=== PATIENT | female | born 1975 | race Caucasian/White ===

== ENCOUNTER 2023-05-03 23:07 | Inpatient (IN) | payer BC, MEDICAID ==
[~2023-05-03] VITALS: Ht 165.1 cm; Wt 61.8 kg
[2023-05-03] MEDS ORDERED: VENL50TA44 PO (23:48)
[2023-05-03] MEDS ORDERED: MIRT-149 PO (23:48)
[2023-05-04 00:30] LABS: BASOPHILS % (AUTO) 1.1 % (0.0-2.0); EOSINOPHILS % (AUTO) 1.1 % (1.0-6.0); HEMOGLOBIN 13.9 g/dL (12.0-16.0); LYMPHOCYTES # (AUTO) 1.4 K/uL (1.0-4.8); LYMPHOCYTES % (AUTO) 28.2 % (22.0-44.0); MEAN CORPUSCULAR HEMOGLOBIN 29.2 pg (26.0-34.0); MEAN CORPUSCULAR HGB CONC 33.1 G/dL (31.0-37.0); MEAN CORPUSCULAR VOLUME 88 fL (80-100); MONOCYTES # (AUTO) 0.4 K/uL (0.1-1.0); MONOCYTES % (AUTO) 7.9 % (2.0-9.0); NEUTROPHILS % (AUTO) 61.7 % (40.0-70.0); PLATELET COUNT (AUTO) 176 K/uL (150-450); RED BLOOD CELL COUNT(AUTO) 4.75 MIL/uL (4.00-5.20); RED CELL DISTRIBUTION WIDTH 13.5 % (11.5-14.5)
[2023-05-04 00:37] LABS: ANION GAP 8 mmol/L (8-16); CALCIUM, TOTAL 8.6 mg/dL (8.8-10.5); CARBON DIOXIDE 27 mmol/L (22-29); CHLORIDE 106 mmol/L (98-107); CREATININE 0.83 mg/dL (0.60-1.30); GLOMERULAR FILTR. RATE CALC > 60 mL/min (>60); GLUCOSE,RANDOM 103 mg/dL (70-110); POTASSIUM 3.7 mmol/L (3.5-5.1); SODIUM SERUM 141 mmol/L (136-145)
[2023-05-04 00:43] LABS: ALANINE AMINOTRANSFERASE 9 U/L (12-78); ALBUMIN 3.2 g/dL (3.4-5.0); ALKALINE PHOSPHATASE 94 U/L (46-116); ASPARTATE AMINOTRANSFERASE 10 U/L (15-37); BILIRUBIN,TOTAL 0.2 mg/dL (0.1-1.0)
[2023-05-04 03:14] LABS: COVID AG,FIA SOURCE NASOPHARYNGEAL
[2023-05-04 12:51] LABS: APPEARANCE,URINE CLEAR (CLEAR); BILIRUBIN,URINE NEGATIVE (NEGATIVE); GLUCOSE, URINE (UA) NEGATIVE (NEGATIVE); KETONES,URINE NEGATIVE (NEGATIVE); LEUKOCYTE ESTERASE ,URINE NEGATIVE (NEGATIVE); NITRATE,URINE NEGATIVE (NEGATIVE); OCCULT BLOOD,URINE NEGATIVE (NEGATIVE); PROTEIN,URINE 30-70 mg/dL (NEGATIVE); SPECIFIC GRAVITIY, URINE 1.025 (1.003-1.030); UROBILINOGEN,URINE <=1.0 mg/dL (<=1.0)
[2023-05-04 12:57] LABS: AMPHET/METH SCREEN,URINE NEGATIVE (NEGATIVE); BARBITURATE SCREEN, URINE NEGATIVE (NEGATIVE); BENZODIAZEPINES SCREEN,URINE NEGATIVE (NEGATIVE); CANNABINOID SCREEN,URINE NEGATIVE (NEGATIVE); COCAINE SCREEN,URINE NEGATIVE (NEGATIVE); METHADONE SCREEN, URINE NEGATIVE (NEGATIVE); OPIATE SCREEN,URINE NEGATIVE (NEGATIVE); PHENCYCLIDINE SCREEN,URINE NEGATIVE (NEGATIVE)
[2023-05-04] MEDS ORDERED: DIVA500T53 PO (13:31)
[2023-05-04] MEDS ORDERED: LINA72CA PO (13:31)
[2023-05-04] MEDS: VENLAFAXINE HCL 150 MG ER CAPSULE PO SCH (14:10)
[2023-05-04] MEDS: DIVALPROEX SODIUM 500 MG ER TABLET PO SCH ×2 (14:11→21:40)
[2023-05-04] MEDS: LINACLOTIDE 72 MCG CAPSULE PO SCH (14:12)
[2023-05-04 18:03] VITALS: BP 145/80; PULSE 82; RESP 18; TEMP 98.4
[2023-05-04 18:11] VITALS: BP 145/80; PULSE 82; RESP 18; TEMP 98.4
[2023-05-04] MEDS: ZOLPIDEM TARTRATE 10 MG TABLET PO PRN (21:41)
[2023-05-04 23:30] VITALS: BP 124/83; PULSE 78; RESP 18; TEMP 98.1
[2023-05-05] MEDS ORDERED: DOCUSATE SODIUM 100 MG CAPSULE PO PRN (07:45)
[2023-05-05] MEDS ORDERED: ACETAMINOPHEN 325 MG TABLET PO PRN (07:45)
[2023-05-05] MEDS ORDERED: ALBUTEROL SULFATE HFA 90 MCG/PUFF 8 GM INHALER IH PRN (07:45)
[2023-05-05] MEDS ORDERED: MAGNESIUM HYDROXIDE SUSPENSION 30 ML UDCUP PO PRN (07:45)
[2023-05-05] MEDS ORDERED: LOPERAMIDE HCL 2 MG CAPSULE PO PRN (07:45)
[2023-05-05] MEDS ORDERED: NICOTINE 14 MG/24 HOUR PATCH TD PRN (07:45)
[2023-05-05] MEDS ORDERED: CloNIDine HCL 0.1 MG TABLET PO PRN (07:45)
[2023-05-05] MEDS ORDERED: MAG HYDROX/AL HYDROX/SIMETH ES 30 ML SUSPENSION UDCUP PO PRN (07:45)
[2023-05-05] MEDS ORDERED: GuaiFENesin/D-METHORPHAN [SUGAR-FREE] 200-20MG/10 ML SYRUP UDCUP PO PRN (07:45)
[2023-05-05] MEDS ORDERED: PETROLATUM,WHITE 28 GM JELLY TP PRN (07:45)
[2023-05-05 08:52] VITALS: BP 126/88; PULSE 84; RESP 16; TEMP 98
[2023-05-05 09:49] VITALS: BP 126/88; PULSE 84; RESP 16; TEMP 98
[2023-05-05] MEDS: IBUPROFEN 400 MG TABLET PO PRN (09:49)
[2023-05-05] MEDS: LINACLOTIDE 72 MCG CAPSULE PO SCH (09:49)
[2023-05-05] MEDS: VENLAFAXINE HCL 150 MG ER CAPSULE PO SCH (09:49)
[2023-05-05] MEDS: DIVALPROEX SODIUM 500 MG ER TABLET PO SCH ×2 (09:49→20:39)
[2023-05-05 10:49] VITALS: BP 132/81; PULSE 81; RESP 16; TEMP 98.1
[2023-05-05] MEDS: ONDANSETRON HCL 4 MG TABLET PO PRN (19:19)
[2023-05-05] MEDS: MIRTAZAPINE 30 MG TABLET PO SCH (20:39)
[2023-05-05 21:13] VITALS: BP 119/76; PULSE 75; RESP 18; TEMP 98.7
[2023-05-05] MEDS: ZOLPIDEM TARTRATE 10 MG TABLET PO PRN (22:03)
[2023-05-06 08:58] VITALS: RESP 18
[2023-05-06 09:27] LABS: HEMOGLOBIN A1C 5.3 % (3.8-5.6)
[2023-05-06 09:35] LABS: CHOL/HDL RATIO 3.4 (3.9-5.7); THYROID STIMULATING HORMONE 4.66 uIU/mL (0.36-3.74)
[2023-05-06] MEDS: VENLAFAXINE HCL 150 MG ER CAPSULE PO SCH (10:08)
[2023-05-06] MEDS: LINACLOTIDE 72 MCG CAPSULE PO SCH (10:08)
[2023-05-06] MEDS: DIVALPROEX SODIUM 500 MG ER TABLET PO SCH ×2 (10:08→20:10)
[2023-05-06] MEDS: LORazepam 2 MG TABLET PO PRN ×2 (13:21→23:26)
[2023-05-06] MEDS: MIRTAZAPINE 30 MG TABLET PO SCH (20:10)
[2023-05-06] MEDS: ZOLPIDEM TARTRATE 10 MG TABLET PO PRN (20:48)
[2023-05-06 21:18] VITALS: BP 127/87; PULSE 89; RESP 18; TEMP 98
[2023-05-06] MEDS: HALOPERIDOL 5 MG TABLET PO PRN (23:26)
[2023-05-07 08:26] VITALS: BP 136/67; PULSE 74; RESP 19; TEMP 97.4
[2023-05-07] MEDS: LINACLOTIDE 72 MCG CAPSULE PO SCH (09:25)
[2023-05-07] MEDS: DIVALPROEX SODIUM 500 MG ER TABLET PO SCH ×2 (09:25→20:33)
[2023-05-07] MEDS: VENLAFAXINE HCL 150 MG ER CAPSULE PO SCH (09:25)
[2023-05-07 20:01] VITALS: BP 124/76; PULSE 80; RESP 18; TEMP 98.4
[2023-05-07] MEDS: MIRTAZAPINE 30 MG TABLET PO SCH (20:33)
[2023-05-07] MEDS: ZOLPIDEM TARTRATE 10 MG TABLET PO PRN (21:21)
[2023-05-08] MEDS: VENLAFAXINE HCL 150 MG ER CAPSULE PO SCH (08:47)
[2023-05-08] MEDS: DIVALPROEX SODIUM 500 MG ER TABLET PO SCH ×2 (08:47→21:17)
[2023-05-08] MEDS: LINACLOTIDE 72 MCG CAPSULE PO SCH (08:47)
[2023-05-08 09:45] VITALS: BP 130/78; PULSE 69; RESP 18; TEMP 97.6
[2023-05-08 15:24] VITALS: BP 133/72; PULSE 79; RESP 17; TEMP 98
[2023-05-08] MEDS: IBUPROFEN 400 MG TABLET PO PRN (15:24)
[2023-05-08 16:24] VITALS: BP 128/79; PULSE 78; RESP 17; TEMP 98
[2023-05-08] MEDS: OMEPRAZOLE 20 MG CAPSULE PO SCH (18:04)
[2023-05-08 20:14] VITALS: BP 130/96; PULSE 87; RESP 18; TEMP 98.4
[2023-05-08] MEDS: ZOLPIDEM TARTRATE 10 MG TABLET PO PRN (21:17)
[2023-05-08] MEDS: MIRTAZAPINE 30 MG TABLET PO SCH (21:17)
[2023-05-09] MEDS: HALOPERIDOL 5 MG TABLET PO PRN (03:01)
[2023-05-09] MEDS: LORazepam 2 MG TABLET PO PRN (03:01)
[2023-05-09 07:15] VITALS: BP 128/82; PULSE 89; RESP 18; TEMP 102.3
[2023-05-09 07:25] VITALS: BP_SYST 1; TEMP 102.3
[2023-05-09 08:43] LABS: COVID AG,FIA SOURCE NASAL SWAB
[2023-05-09] MEDS: VENLAFAXINE HCL 150 MG ER CAPSULE PO SCH (08:51)
[2023-05-09] MEDS: OMEPRAZOLE 20 MG CAPSULE PO SCH (08:51)
[2023-05-09] MEDS: LINACLOTIDE 72 MCG CAPSULE PO SCH (08:51)
[2023-05-09] MEDS: DIVALPROEX SODIUM 500 MG ER TABLET PO SCH ×2 (08:51→20:30)
[2023-05-09 09:39] VITALS: BP 126/84; PULSE 106; RESP 18; TEMP 99.5
[2023-05-09 10:39] VITALS: TEMP 98
[2023-05-09 11:39] LABS: APPEARANCE,URINE CLEAR (CLEAR); BILIRUBIN,URINE NEGATIVE (NEGATIVE); GLUCOSE, URINE (UA) NEGATIVE (NEGATIVE); KETONES,URINE NEGATIVE (NEGATIVE); LEUKOCYTE ESTERASE ,URINE NEGATIVE (NEGATIVE); NITRATE,URINE NEGATIVE (NEGATIVE); OCCULT BLOOD,URINE NEGATIVE (NEGATIVE); PH,URINE 6.5 (5.0-8.0); PROTEIN,URINE NEGATIVE (NEGATIVE); SPECIFIC GRAVITIY, URINE 1.005 (1.003-1.030); UROBILINOGEN,URINE <=1.0 mg/dL (<=1.0)
[2023-05-09] MEDS: MIRTAZAPINE 30 MG TABLET PO SCH (20:30)
[2023-05-09] MEDS: ZOLPIDEM TARTRATE 10 MG TABLET PO PRN (20:30)
[2023-05-09 20:32] VITALS: BP 113/76; PULSE 86; RESP 18
[2023-05-10 03:33] VITALS: RESP 18; TEMP 98.9
[2023-05-10 09:00] VITALS: BP 121/81; PULSE 84; RESP 18; TEMP 97.3
[2023-05-10 09:06] LABS: COVID AG,FIA SOURCE NASAL SWAB
[2023-05-10 09:15] VITALS: BP 126/89; PULSE 77; RESP 18; TEMP 97.8
[2023-05-10] MEDS: LINACLOTIDE 72 MCG CAPSULE PO SCH (09:20)
[2023-05-10] MEDS: OMEPRAZOLE 20 MG CAPSULE PO SCH (09:20)
[2023-05-10] MEDS: VENLAFAXINE HCL 150 MG ER CAPSULE PO SCH (09:20)
[2023-05-10] MEDS: DIVALPROEX SODIUM 500 MG ER TABLET PO SCH ×2 (09:20→20:20)
[2023-05-10] MEDS: ZOLPIDEM TARTRATE 10 MG TABLET PO PRN (20:20)
[2023-05-10] MEDS: MIRTAZAPINE 30 MG TABLET PO SCH (20:20)
[2023-05-10 21:00] VITALS: BP 121/81; PULSE 84; RESP 18; TEMP 97.3
[2023-05-11 00:23] VITALS: BP 119/82; PULSE 81; RESP 18; TEMP 97.5
[2023-05-11] MEDS: HALOPERIDOL 5 MG TABLET PO PRN ×2 (03:33→21:23)
[2023-05-11] MEDS: LORazepam 2 MG TABLET PO PRN (03:33)
[2023-05-11 04:34] VITALS: BP 119/89; PULSE 86; RESP 17; TEMP 99.2
[2023-05-11 08:21] VITALS: BP 112/79; PULSE 90; RESP 18; TEMP 98.7
[2023-05-11] MEDS: DIVALPROEX SODIUM 500 MG ER TABLET PO SCH ×2 (08:38→21:23)
[2023-05-11] MEDS: VENLAFAXINE HCL 150 MG ER CAPSULE PO SCH (08:38)
[2023-05-11] MEDS: LINACLOTIDE 72 MCG CAPSULE PO SCH (08:38)
[2023-05-11] MEDS: OMEPRAZOLE 20 MG CAPSULE PO SCH (08:38)
[2023-05-11 12:24] VITALS: BP 118/80; PULSE 96; RESP 18; TEMP 99.7
[2023-05-11 17:04] VITALS: BP 100/61; PULSE 60; RESP 18; TEMP 98.7
[2023-05-11 20:57] VITALS: BP 116/68; PULSE 75; RESP 18; TEMP 99.5
[2023-05-11] MEDS: ZOLPIDEM TARTRATE 10 MG TABLET PO PRN (21:23)
[2023-05-11] MEDS: MIRTAZAPINE 30 MG TABLET PO SCH (21:23)
[2023-05-12 03:42] VITALS: RESP 17; TEMP 99
[2023-05-12 05:52] VITALS: BP 113/78; PULSE 77; RESP 17; TEMP 98.7
[2023-05-12] MEDS: LINACLOTIDE 72 MCG CAPSULE PO SCH (08:59)
[2023-05-12] MEDS: DIVALPROEX SODIUM 500 MG ER TABLET PO SCH ×2 (08:59→21:30)
[2023-05-12] MEDS: VENLAFAXINE HCL 150 MG ER CAPSULE PO SCH (08:59)
[2023-05-12] MEDS: OMEPRAZOLE 20 MG CAPSULE PO SCH (08:59)
[2023-05-12 09:30] VITALS: BP 96/63; PULSE 66; RESP 18; TEMP 98.9
[2023-05-12 13:30] VITALS: BP_SYST 115; BP_SYST 15; BP_DIAS 68; PULSE 66; RESP 18; TEMP 97.6
[2023-05-12 16:00] VITALS: BP 96/63; PULSE 66; RESP 18; TEMP 98.9
[2023-05-12 20:44] VITALS: BP 115/73; PULSE 70; RESP 18; TEMP 98.2
[2023-05-12] MEDS: ZOLPIDEM TARTRATE 10 MG TABLET PO PRN (21:30)
[2023-05-12] MEDS: MIRTAZAPINE 30 MG TABLET PO SCH (21:30)
[2023-05-13] VITALS (7 sets, daily range): BP systolic 104–128; BP diastolic 62–75; PULSE 71–77; RESP 17–18; TEMP 97.7–98.7
[2023-05-13] MEDS: DIVALPROEX SODIUM 500 MG ER TABLET PO SCH ×2 (11:07→14:16)
[2023-05-13] MEDS: LINACLOTIDE 72 MCG CAPSULE PO SCH (11:07)
[2023-05-13] MEDS: VENLAFAXINE HCL 150 MG ER CAPSULE PO SCH (11:07)
[2023-05-13] MEDS: OMEPRAZOLE 20 MG CAPSULE PO SCH (11:08)
[2023-05-13] MEDS: ONDANSETRON HCL 4 MG TABLET PO PRN (14:16)
[2023-05-13] MEDS: IBUPROFEN 400 MG TABLET PO PRN (15:58)
[2023-05-13] MEDS: MIRTAZAPINE 30 MG TABLET PO SCH (21:50)
[2023-05-13] MEDS: ZOLPIDEM TARTRATE 10 MG TABLET PO PRN (21:55)
[2023-05-13] MEDS: LORazepam 2 MG TABLET PO PRN (21:56)
[2023-05-14 00:33] VITALS: RESP 18; TEMP 98.7
[2023-05-14 06:09] VITALS: RESP 17; TEMP 98.2
[2023-05-14 08:00] VITALS: BP 114/73; PULSE 65; RESP 18; TEMP 98.6
[2023-05-14] MEDS: OMEPRAZOLE 20 MG CAPSULE PO SCH (09:48)
[2023-05-14] MEDS: DIVALPROEX SODIUM 500 MG ER TABLET PO SCH ×2 (09:48→21:20)
[2023-05-14] MEDS: VENLAFAXINE HCL 150 MG ER CAPSULE PO SCH (09:48)
[2023-05-14] MEDS: LINACLOTIDE 72 MCG CAPSULE PO SCH (09:48)
[2023-05-14 12:00] VITALS: BP 116/72; PULSE 78; RESP 19; TEMP 98.3
[2023-05-14 16:00] VITALS: BP 115/75; PULSE 80; RESP 18; TEMP 98.5
[2023-05-14] MEDS: ONDANSETRON HCL 4 MG TABLET PO PRN (19:04)
[2023-05-14] MEDS: LORazepam 2 MG TABLET PO PRN (19:04)
[2023-05-14] MEDS: MIRTAZAPINE 30 MG TABLET PO SCH (21:20)
[2023-05-14 21:40] VITALS: BP 142/92; PULSE 79; RESP 18; TEMP 98
[2023-05-15 00:43] VITALS: RESP 18
[2023-05-15] MEDS: ZOLPIDEM TARTRATE 10 MG TABLET PO PRN ×2 (02:26→21:03)
[2023-05-15 04:05] VITALS: RESP 18
[2023-05-15 08:00] VITALS: BP 109/78; PULSE 80; RESP 18; TEMP 98.6
[2023-05-15] MEDS: VENLAFAXINE HCL 150 MG ER CAPSULE PO SCH (09:20)
[2023-05-15] MEDS: LINACLOTIDE 72 MCG CAPSULE PO SCH (09:20)
[2023-05-15] MEDS: OMEPRAZOLE 20 MG CAPSULE PO SCH (09:20)
[2023-05-15] MEDS: DIVALPROEX SODIUM 500 MG ER TABLET PO SCH ×2 (09:20→21:02)
[2023-05-15 12:00] VITALS: BP 116/77; PULSE 80; RESP 18; TEMP 97.5
[2023-05-15 16:00] VITALS: BP 112/72; PULSE 82; RESP 18; TEMP 97.8
[2023-05-15] MEDS: ONDANSETRON HCL 4 MG TABLET PO PRN (18:09)
[2023-05-15] MEDS: LORazepam 2 MG TABLET PO PRN (19:29)
[2023-05-15 20:26] VITALS: BP 112/82; PULSE 86; RESP 18; TEMP 97.1
[2023-05-15] MEDS: MIRTAZAPINE 30 MG TABLET PO SCH (21:03)
[2023-05-16 00:29] VITALS: RESP 18
[2023-05-16 04:16] VITALS: RESP 18
[2023-05-16 08:00] VITALS: BP 138/91; PULSE 64; RESP 18; TEMP 97.3
[2023-05-16] MEDS: VENLAFAXINE HCL 150 MG ER CAPSULE PO SCH (11:50)
[2023-05-16] MEDS: DIVALPROEX SODIUM 500 MG ER TABLET PO SCH ×2 (11:50→20:56)
[2023-05-16] MEDS: LINACLOTIDE 72 MCG CAPSULE PO SCH (11:51)
[2023-05-16] MEDS: OMEPRAZOLE 20 MG CAPSULE PO SCH (11:52)
[2023-05-16 12:00] VITALS: BP 101/56; PULSE 78; RESP 18; TEMP 97.9
[2023-05-16 16:00] VITALS: BP 115/87; PULSE 80; RESP 18; TEMP 97.6
[2023-05-16] MEDS: ONDANSETRON HCL 4 MG TABLET PO PRN (18:46)
[2023-05-16] MEDS: MIRTAZAPINE 30 MG TABLET PO SCH (20:56)
[2023-05-16] MEDS: LORazepam 2 MG TABLET PO PRN (21:14)
[2023-05-16 21:15] VITALS: BP 140/82; PULSE 79; RESP 18; TEMP 98.2
[2023-05-16] MEDS: ZOLPIDEM TARTRATE 10 MG TABLET PO PRN (22:38)
[2023-05-17 08:25] VITALS: BP 116/79; PULSE 68; RESP 18; TEMP 97.5
[2023-05-17] MEDS: VENLAFAXINE HCL 150 MG ER CAPSULE PO SCH (12:05)
[2023-05-17] MEDS: DIVALPROEX SODIUM 500 MG ER TABLET PO SCH ×2 (12:05→20:54)
[2023-05-17] MEDS: LINACLOTIDE 72 MCG CAPSULE PO SCH (12:05)
[2023-05-17] MEDS: OMEPRAZOLE 20 MG CAPSULE PO SCH (12:05)
[2023-05-17 12:37] VITALS: BP 118/76; PULSE 80; RESP 19; TEMP 98
[2023-05-17 16:12] VITALS: BP 132/88; PULSE 70; RESP 18; TEMP 98.2
[2023-05-17 20:23] VITALS: BP 129/85; PULSE 82; RESP 18; TEMP 97.8
[2023-05-17] MEDS: MIRTAZAPINE 30 MG TABLET PO SCH (20:54)
[2023-05-17] MEDS: ZOLPIDEM TARTRATE 10 MG TABLET PO PRN (20:54)
[2023-05-18 00:06] VITALS: BP 124/89; PULSE 87; RESP 17; TEMP 98
[2023-05-18] MEDS: LORazepam 2 MG TABLET PO PRN ×2 (01:08→20:42)
[2023-05-18 04:24] VITALS: RESP 18
[2023-05-18 08:00] VITALS: RESP 17
[2023-05-18] MEDS: OMEPRAZOLE 20 MG CAPSULE PO SCH (09:49)
[2023-05-18] MEDS: LINACLOTIDE 72 MCG CAPSULE PO SCH (09:49)
[2023-05-18] MEDS: VENLAFAXINE HCL 150 MG ER CAPSULE PO SCH (09:49)
[2023-05-18] MEDS: DIVALPROEX SODIUM 500 MG ER TABLET PO SCH ×2 (09:49→20:42)
[2023-05-18 12:35] VITALS: BP 106/68; PULSE 87; RESP 18; TEMP 97.5
[2023-05-18 16:23] VITALS: RESP 17; TEMP 97.8
[2023-05-18 20:18] VITALS: BP 132/82; PULSE 90; RESP 17; TEMP 98.3
[2023-05-18] MEDS: MIRTAZAPINE 30 MG TABLET PO SCH (20:42)
[2023-05-18] MEDS: ZOLPIDEM TARTRATE 10 MG TABLET PO PRN (22:13)
[2023-05-19] VITALS: RESP 18; TEMP 97.3
[2023-05-19 04:00] VITALS: BP 134/72; PULSE 96; RESP 18; TEMP 98.3
[2023-05-19 08:08] VITALS: BP 140/71; PULSE 78; RESP 17; TEMP 97.8
[2023-05-19] MEDS: DIVALPROEX SODIUM 500 MG ER TABLET PO SCH ×2 (09:06→20:59)
[2023-05-19] MEDS: LINACLOTIDE 72 MCG CAPSULE PO SCH (09:06)
[2023-05-19] MEDS: VENLAFAXINE HCL 150 MG ER CAPSULE PO SCH (09:06)
[2023-05-19] MEDS: OMEPRAZOLE 20 MG CAPSULE PO SCH (09:07)
[2023-05-19 12:08] VITALS: TEMP 98
[2023-05-19] MEDS: LORazepam 2 MG TABLET PO PRN ×2 (16:35→22:51)
[2023-05-19 18:42] VITALS: TEMP 98.1
[2023-05-19 20:17] VITALS: BP 141/76; PULSE 72; RESP 18; TEMP 97.1
[2023-05-19] MEDS: MIRTAZAPINE 30 MG TABLET PO SCH (20:59)
[2023-05-19] MEDS: ZOLPIDEM TARTRATE 10 MG TABLET PO PRN (20:59)
[2023-05-20 02:12] VITALS: RESP 18
[2023-05-20 05:06] VITALS: RESP 18
[2023-05-20 08:00] VITALS: BP 123/75; PULSE 68; RESP 18; TEMP 98.4
[2023-05-20] MEDS: OMEPRAZOLE 20 MG CAPSULE PO SCH (09:01)
[2023-05-20] MEDS: DIVALPROEX SODIUM 500 MG ER TABLET PO SCH ×2 (09:01→21:24)
[2023-05-20] MEDS: LINACLOTIDE 72 MCG CAPSULE PO SCH (09:01)
[2023-05-20] MEDS: VENLAFAXINE HCL 150 MG ER CAPSULE PO SCH (09:01)
[2023-05-20 12:09] VITALS: RESP 17; TEMP 98
[2023-05-20 12:21] LABS: FREE T4 (FREE THYROXINE) 0.56 ng/dL (0.76-1.46)
[2023-05-20] MEDS: ONDANSETRON HCL 4 MG TABLET PO PRN (12:36)
[2023-05-20] MEDS: LORazepam 2 MG TABLET PO PRN ×2 (15:21→21:24)
[2023-05-20 16:56] VITALS: RESP 18; TEMP 98.4
[2023-05-20 20:00] VITALS: BP 121/73; PULSE 70; RESP 18; TEMP 98.2
[2023-05-20] MEDS: MIRTAZAPINE 30 MG TABLET PO SCH (21:24)
[2023-05-20] MEDS: ZOLPIDEM TARTRATE 10 MG TABLET PO PRN (22:10)
[2023-05-21 00:09] VITALS: RESP 18; TEMP 98
[2023-05-21 04:04] VITALS: RESP 18
[2023-05-21] MEDS ORDERED: LEVOTHYROXINE SODIUM 50 MCG TABLET PO SCH (07:00)
[2023-05-21 08:00] VITALS: BP 107/71; PULSE 84; RESP 18; TEMP 98
[2023-05-21] MEDS: OMEPRAZOLE 20 MG CAPSULE PO SCH (10:04)
[2023-05-21] MEDS: VENLAFAXINE HCL 150 MG ER CAPSULE PO SCH (10:04)
[2023-05-21] MEDS: DIVALPROEX SODIUM 500 MG ER TABLET PO SCH (10:04)
[2023-05-21] MEDS: LINACLOTIDE 72 MCG CAPSULE PO SCH (10:04)
[2023-05-21] MEDS ORDERED: MIRT-149 PO (11:01)
[2023-05-21] MEDS ORDERED: DIVA500T69 PO (11:01)
[2023-05-21] MEDS ORDERED: VENL150C4 PO (11:01)
[2023-05-21] MEDS ORDERED: LINA72CA PO (11:43)
[2023-05-21] MEDS ORDERED: LEVO50 PO (11:43)
[2023-05-21] MEDS ORDERED: OMEP20 PO (11:43)
== END 2023-05-21 12:12 | disposition home or self-care (01) | DRG 751 ==
LOC: EMS 23:09 → 3EI 05-04 17:09
PROVIDERS: ADMIT Psychiatry & Neurology Psychiatry; ATTEND Psychiatry & Neurology Child & Adolescent Psychiatry
DX: F33.2 Major depressive disorder, recurrent severe without psychotic features (principal); U07.1 COVID-19; R45.851 Suicidal ideations; E83.51 Hypocalcemia; G47.00 Insomnia, unspecified; R94.6 Abnormal results of thyroid function studies; F20.9 Schizophrenia, unspecified; Z88.5 Allergy status to narcotic agent; Z79.899 Other long term (current) drug therapy; Z59.00 Homelessness unspecified
CPT/HCPCS: 71046; 80053; 80061; 80164; 80307; 81003; 83036; 84439; 84443; 84703; 85025; 87081; 99285; G0480; Q0162; Q9967; 36415-L1; 36415-TC